=== PATIENT | male | born 1995 | race Caucasian/White ===

== ENCOUNTER 2019-04-25 04:44 | Emergency (ER) | payer BC ==
[~2019-04-25] VITALS: Ht 177.8 cm; Wt 68.2 kg
[2019-04-25 04:47] VITALS: BP 123/91
[2019-04-25] MEDS ORDERED: LIDOcaine 1% w/epiNEPHrine 1:200,000 30ml vial IM ONE (05:50)
--- NOTE | 2019-04-25 06:29 | NUR ---
TIM BAR IRRIGATED PT WOUND PER DR PICKERING REQUEST AND NOTIFIED DR PICKERING WHEN COMPLETE
[2019-04-25] MEDS ORDERED: CEPH250T PO (06:52)
--- NOTE | 2019-04-25 07:16 | NUR ---
DRESSING APPLIED BY TIM AREVALO TECH
== END 2019-04-25 07:18 | disposition home or self-care (01) ==
LOC: ER 04:45
DX: S01.112A Laceration without foreign body of left eyelid and periocular area, initial encounter (principal); S01.81XA Laceration without foreign body of other part of head, initial encounter; F17.200 Nicotine dependence, unspecified, uncomplicated; Z79.899 Other long term (current) drug therapy; W22.8XXA Striking against or struck by other objects, initial encounter; Y93.83 Activity, rough housing and horseplay; Y92.89 Other specified places as the place of occurrence of the external cause; Y99.8 Other external cause status
CPT/HCPCS: 12013; 99284

== ENCOUNTER 2019-12-25 06:45 | Emergency (ER) | payer MEDICAID, OTHER ==
[~2019-12-25] VITALS: Ht 177.8 cm; Wt 68.2 kg
[2019-12-25] MEDS ORDERED: ondansetron 4mg rapidly disintigrating tab PO ONE (07:15)
[2019-12-25] MEDS ORDERED: ketorolac trometh inj. 60 MG/2 ML VIAL IM ONE (07:15)
[2019-12-25] MEDS ORDERED: HYDROcodone/acetaminophen 5mg/325mg tablet PO ONE (07:15)
[2019-12-25] MEDS ORDERED: acetaminophen 325mg tablet PO ONE (07:15)
[2019-12-25 07:49] VITALS: BP 168/88
[2019-12-25] MEDS ORDERED: ACET-1025 PO (08:02)
[2019-12-25] MEDS ORDERED: MELO-100 PO (08:02)
== END 2019-12-25 08:17 | disposition home or self-care (01) ==
LOC: ER 06:46
DX: M25.511 Pain in right shoulder (principal); R07.81 Pleurodynia; V29.9XXA Motorcycle rider (driver) (passenger) injured in unspecified traffic accident, initial encounter; Y93.89 Activity, other specified; Y92.828 Other wilderness area as the place of occurrence of the external cause; Y99.8 Other external cause status
CPT/HCPCS: 71100; 73030; 96372; 99284; J1885